=== PATIENT | female | born 1960 | race Caucasian/White ===

== ENCOUNTER 2020-08-13 20:10 | Emergency (ER) | payer BC ==
[2020-08-13 21:41] LABS: HEMOGLOBIN 12.9 gm/dl (12.3-15.3); RED BLOOD COUNT 4.76 M/UL (4.00-5.10); WHITE BLOOD COUNT 8.1 K/UL (4.5-11.0)
[2020-08-13 22:02] LABS: BUN/CREATININE RATIO 18 (0-10)
[2020-08-13] MEDS ORDERED: KEFLEX250 MG PO (22:17)
== END 2020-08-13 22:49 | disposition home or self-care (01) ==
LOC: ER1 20:10
PROVIDERS: Physician Assistant
DX: R19.03 Right lower quadrant abdominal swelling, mass and lump (principal)
CPT/HCPCS: 80053; 85025; 86140; 99283

== ENCOUNTER → 2020-09-02 | Outpatient (CLI) | payer BC ==
[~2020-09-02] MED LIST: KEFLEX250 MG PO
== END ==
LOC: KOH-I 11:30
DX: R59.0 Localized enlarged lymph nodes (principal)
CPT/HCPCS: 76881

== ENCOUNTER → 2021-11-05 | Outpatient (CLI) | payer BC | LOC: MAMO 09-28 15:30 | DX: Z12.31 Encounter for screening mammogram for malignant neoplasm of breast (principal) | CPT/HCPCS: 77063; 77067 ==